=== PATIENT | male | born 1985 | race Caucasian/White ===

== ENCOUNTER 2017-01-26 13:07 | Emergency (ER) | payer OTHER ==
[~2017-01-26] VITALS: Ht 160 cm; Wt 71.5 kg
[~2017-01-26 13:07] MED LIST: ALBU8.5H5 INH; AZIT250T94 PO; CIPR500T4 PO; HYDR-762 PO; METR500T PO; PRED20TA PO
[2017-01-26 13:13] VITALS: Ht 160 cm; Wt 71.5 kg
[2017-01-26] MEDS ORDERED: traMADol 50 MG TAB PO ONE (15:30)
--- NOTE | 2017-01-26 15:34 | ERD ---
ER Documentation Chief Complaint Chief Complaint Abdominal pain HPI 31 year old male comes in with llq pain that is sharp, constant moderate pain that started this morning. Patient states that the pain started this morning when he woke up. He took Tylenol without any relief. Denies fevers or chills, nausea, vomiting or diarrhea. There is no radicular symptoms to his testicles. There is no hematuria or flank pain. She reports a normal bowel movement this morning. ROS All systems reviewed and are negative except as per history of present illness. Medications Home Meds Active Scripts Tramadol HCl (Tramadol HCl) 50 Mg Tablet, 50 MG PO Q4 Y for PAIN, #20 TAB Prov:GEORGINA LOUIS PA-C 01/26/17 Metronidazole* (Flagyl*) 500 Mg Tablet, 500 MG PO TID for 10 Days, TAB Prov:GEORGINA LOUIS PA-C 01/26/17 Ciprofloxacin Hcl* (Ciprofloxacin Hcl*) 500 Mg Tablet, 500 MG PO BID for 10 Days , TAB Prov:GEORGINA LOUIS PA-C 01/26/17 Hydrocodone Bit-Acetaminophen* (Antelope*) 10-325 Mg Tablet, 1 TAB PO Q6 Y for PAIN , #14 TAB Prov:GEORGINA LOUIS PA-C 04/27/15 Metronidazole* (Flagyl*) 500 Mg Tablet, 500 MG PO TID for 7 Days, TAB Prov:GEORGINA LOUIS PA-C 04/27/15 Ciprofloxacin Hcl* (Ciprofloxacin Hcl*) 500 Mg Tablet, 500 MG PO BID for 7 Days , TAB Prov:GEORGINA LOUIS PA-C 04/27/15 Prednisone* (Prednisone*) 20 Mg Tab, 20 MG PO DAILY for 5 Days, TAB Prov:GEORGINA LOUIS PA-C 09/29/14 Albuterol Sulfate* (Albuterol Sulfate* HFA) 8.5 Gm Hfa.aer.ad, 1-2 PUFF INH Q4 Y for SHORTNESS OF BREATH, #1 EA Prov:GEORGINA LOUIS PA-C 09/29/14 Azithromycin* (Zithromax*) 250 Mg Tablet, 250 MG PO .ZPACK DIRECTED, #6 TAB TAKE 500 MG (2 TABS) THE FIRST DAY THEN 250 MG (1 TAB) DAYS 2-5 Prov:GEORGINA LOUIS PA-C 09/29/14 Allergies Allergies: Coded Allergies: No Known Allergy (Unverified , 04/27/15) PMhx/Soc History of Surgery: No Anesthesia Reaction: No Hx Neurological Disorder: No Hx Respiratory Disorders: No Hx Cardiac Disorders: No Hx Psychiatric Problems: No Hx Miscellaneous Medical Probl: No Hx Alcohol Use: Yes Hx Substance Use: No Hx Tobacco Use: Yes Smoking Status: Current some day smoker Physical Exam Vitals Vital Signs Date Time Temp Pulse Resp B/P Pulse Ox O2 Delivery O2 Flow Rate FiO2 01/26/17 13:13 98.5 79 18 140/95 96 Physical Exam General: Well-developed, well-nourished. The patient appears in no acute distress. HEENT: Head is normocephalic, atraumatic. No scleral icterus. Supple, nontender , no meningismus Lungs: Clear to auscultation. Normal air movement. Heart: Regular rate and rhythm. S1 and S2 are normal. No murmurs, gallops, or rubs. Abdomen: Soft, tender to palpation in the left lower quadrant, nondistended. Bowel sounds are normoactive. No tenderness to McBurney's point, negative Lancaster sign, no masses or hepatosplenomegaly. Extremities: No clubbing or cyanosis. Normal pulses. Moving extremities x 4. No weakness. Neurologic: Alert and oriented 3. No focal deficits. Skin: Normal turgor. No rash or lesions. Result Diagram: 01/26/17 1546 01/26/17 1546 Results 24 hrs Laboratory Tests Test 01/26/17 15:46 White Blood Count 9.810^3/ul Red Blood Count 5.1510^6/ul Hemoglobin 15.8g/dl Hematocrit 46.2% Mean Corpuscular Volume 89.7fl Mean Corpuscular Hemoglobin 30.7pg Mean Corpuscular Hemoglobin Concent 34.2g/dl Red Cell Distribution Width 12.6% Platelet Count 17055^3/UL Mean Platelet Volume 11.3fl Neutrophils % 66.8% Lymphocytes % 21.2% Monocytes % 9.4% Eosinophils % 1.6% Basophils % 0.5% Nucleated Red Blood Cells % 0.0/100WBC Neutrophils # 6.510^3/ul Lymphocytes # 2.110^3/ul Monocytes # 0.910^3/ul Eosinophils # 0.210^3/ul Basophils # 0.110^3/ul Nucleated Red Blood Cells # 0.010^3/ul Urine Color JEANIE Urine Clarity CLEAR Urine pH 5.0 Urine Specific [place] 1.043 Urine Ketones NEGATIVEmg/dL Urine Nitrite NEGATIVEmg/dL Urine Bilirubin 1+mg/dL Urine Urobilinogen 1+mg/dL Urine Leukocyte Esterase NEGATIVELeu/ul Urine Microscopic RBC 0/HPF Urine Microscopic WBC 2/HPF Urine Mucus MANY/HPF Urine Hemoglobin NEGATIVEmg/dL Urine Glucose NEGATIVEmg/dL Urine Total Protein 2+mg/dl Sodium Level 145mmol/L Potassium Level 4.2mmol/L Chloride Level 107mmol/L Carbon Dioxide Level 26mmol/L Anion Gap 16 Blood Urea Nitrogen 15mg/dl Creatinine 0.78mg/dl Glucose Level 103mg/dl Calcium Level 9.8mg/dl Total Bilirubin 0.9mg/dl Direct Bilirubin 0.00mg/dl Indirect Bilirubin 0.9mg/dl Aspartate Amino Transf (AST/SGOT) 68IU/L Alanine Aminotransferase (ALT/SGPT) 182IU/L Alkaline Phosphatase 187IU/L Total Protein 8.7g/dl Albumin 4.7g/dl Globulin 4.00g/dl Albumin/Globulin Ratio 1.17 Lipase 70U/L Current Medications Medications (Trade) Dose Ordered Sig/Vince Route PRN Reason Start Time Stop Time Status Last Admin Dose Admin Tramadol HCl (Ultram) 50 mg ONCE ONCE PO 01/26/17 15:30 01/26/17 15:31 DC 01/26/17 15:33 DIAGNOSTIC IMAGING REPORT Patient: ALBINO INTERIANO : 1985 Age: 31 Sex: M MR #: [id number] DOS: 01/26/17 1523 Ordering MD: GEORGINA LOUIS PA-C Location: [facility] Room/Bed: PROCEDURE: CT abdomen and pelvis without contrast. CLINICAL INDICATION: Left lower quadrant abdominal pain TECHNIQUE: CT scan of the abdomen and pelvis without contrast was performed. Sagittal and coronal reformatted images were obtained from the axial source images. One or more of the following dose reduction techniques were used: Automated exposure control, adjustment of the mA and/or kV according to patient size, use of iterative reconstruction technique. CTDI = 8.18 mGy; DLP = 530.49 mGy-cm COMPARISON: CT 04/27/2015 FINDINGS: Visualized lower thorax: The lung bases are clear. There is no evidence for pleural effusion. Liver, gallbladder, pancreas and spleen: Borderline enlarged measuring 18 cm in greatest dimension with diffuse low attenuation consistent hepatic steatosis as seen previously. Liver contour remains normal. There is no evidence for a liver mass or ductal dilatation. The gallbladder is unremarkable. No common bile duct abnormality is demonstrated. The pancreas is unremarkable. The spleen is normal in size. Adrenal glands and genitourinary system: The adrenal glands are normal bilaterally. The kidneys are normal and size, contour and attenuation with no evidence for masses, calculi or hydronephrosis. The ureters are unremarkable. No urinary bladder abnormality is demonstrated. The prostate gland is normal in size. The scrotum shows no evidence of abnormality. Gastrointestinal system: Posterior to the gastric fundus is enlarging, ovoid, hypodense lesion estimated at 3.5 x 1.6 cm, previously 2.4 x 1.5 cm (series 2 image 41). This lesion is indeterminate possibly a duplication cyst. The stomach is normal in caliber without intrinsic wall thickening. The small bowel is normal in caliber with no ileus, obstruction or wall thickening. The appendix and surrounding fat are within the limits of normal. Again demonstrated is thickening of the wall involving the descending colon proximally with pericolonic inflammation adjacent to the multiple diverticula, findings consistent with recurrent acute descending colon diverticulitis. The length of involvement is approximately 9.3 cm. The location of the diverticulitis is more proximal than on the previous study. The sigmoid colon and rectum are unremarkable. Peritoneum, retroperitoneum, lymph nodes and vessels: The abdominal aorta is normal in caliber. There is no evidence for atherosclerotic calcification. The inferior vena cava is unremarkable. There is no evidence for adenopathy or mass. There is no ascites. No pneumoperitoneum or abscess is present. Osseous structures and musculoskeletal findings: There is no fracture, lytic or blastic lesion. No muscular abnormality or soft tissue pathology is present. RPTAT:HJJR IMPRESSION: 1. Acute recurrent descending colonic diverticulitis, the inflammation more proximal in location in the descending colon than the study of 04/27/2015. 2. No evidence of pneumoperitoneum or abscess. 3. Ovoid hypodense lesion posterior to the gastric fundus is slightly larger than on the previous examination but of uncertain significance, the attenuation suggest the possibility of atypical duplication cyst. Adenopathy is a less likely possibility but follow-up evaluation is recommended. 4. Stable hepatic steatosis. Physician Marley Date Time Electronically viewed and signed by Wojciech Crews Physician on 01/26/2017 18:11 JR/ Procedures/MDM ED course: Patient was given tramadol for pain. Medical decision makin-year-old male presents with left lower quadrant abdominal pain, differential diagnosis includes musculoskeletal strain, kidney stone, diverticulitis, constipation, acute appendicitis, pancreatitis, dissection. Pelvis was positive for acute diverticulitis. This appears to be recurrent and he has had this about a year ago. I have advised the patient that he will need to start antibiotics, stay on a clear liquid diet and slowly advance to regular food and needs to follow-up with his PCP in the next couple of days to get a referral to see gastroenterology for an outpatient colonoscopy. No evidence of perforation, intra-abdominal abscess, acute appendicitis. Patient's pain is well controlled emergency department visit for outpatient management. Departure Diagnosis: Primary Impression: Diverticulitis Condition: Good GEORGINA LOUIS PA-C Jan 26, 2017 15:34
[2017-01-26 16:10] LABS: BASOPHIL # 0.1 10^3/ul (0.0-0.1); BASOPHILS % 0.5 % (0.0-2.0); EOSINOPHILS # 0.2 10^3/ul (0.0-0.5); EOSINOPHILS % 1.6 % (0.0-7.0); HEMATOCRIT 46.2 % (42.0-52.0); HEMOGLOBIN 15.8 g/dl (14.0-18.0); LYMPHOCYTES # 2.1 10^3/ul (0.8-2.9); LYMPHOCYTES % 21.2 % (15.0-51.0); MEAN CORPUSCULAR HEMOGLOBIN 30.7 pg (29.0-33.0); MEAN CORPUSCULAR HGB CONC 34.2 g/dl (32.0-37.0); MEAN CORPUSCULAR VOLUME 89.7 fl (82.0-101.0); MEAN PLATELET VOLUME 11.3 fl (7.4-10.4); MONOCYTE # 0.9 10^3/ul (0.3-0.9); MONOCYTES % 9.4 % (0.0-11.0); NEUTROPHIL # 6.5 10^3/ul (1.6-7.5); NEUTROPHILS % 66.8 % (39.0-77.0); PLATELET COUNT 292 10^3/UL (140-415); RED BLOOD COUNT 5.15 10^6/ul (4.70-6.10); RED CELL DISTRIBUTION WIDTH 12.6 % (11.5-14.5); WHITE BLOOD COUNT 9.8 10^3/ul (4.8-10.8)
[2017-01-26 16:12] LABS: ADD UMIC YES; UR ASCORBIC ACID NEGATIVE (NEGATIVE); UR BILIRUBIN (Dip) 1+ mg/dL (NEGATIVE); UR BLOOD (Dip) NEGATIVE (NEGATIVE); UR CLARITY CLEAR (CLEAR); UR COLOR AMBER (YELLOW); UR GLUCOSE (Dip) NEGATIVE (NEGATIVE); UR KETONES (Dip) NEGATIVE (NEGATIVE); UR LEUKOCYTE ESTERASE (Dip) NEGATIVE Leu/ul (NEGATIVE); UR MUCUS MANY /HPF (NONE SEEN); UR NITRITE (Dip) NEGATIVE (NEGATIVE); UR RBC 0 /HPF (0-5); UR SPECIFIC GRAVITY (Dip) 1.043 (1.003-1.030); UR TOTAL PROTEIN (Dip) 2+ mg/dl (NEGATIVE); UR UROBILINOGEN (Dip) 1+ mg/dL (NEGATIVE)
[2017-01-26 16:39] LABS: ALBUMIN 4.7 g/dl (3.3-4.9); ALBUMIN/GLOBULIN RATIO 1.17; BILIRUBIN,INDIRECT 0.9 mg/dl (0-1.1); BILIRUBIN,TOTAL 0.9 mg/dl (0.2-1.3); CALCIUM 9.8 mg/dl (8.4-10.2); CREATININE 0.78 mg/dl (0.61-1.24); POTASSIUM 4.2 mmol/L (3.5-5.1); TOTAL PROTEIN 8.7 g/dl (6.1-8.1)
--- NOTE | 2017-01-26 18:11 | RADRPT ---
PROCEDURE: CT abdomen and pelvis without contrast. CLINICAL INDICATION: Left lower quadrant abdominal pain TECHNIQUE: CT scan of the abdomen and pelvis without contrast was performed. Sagittal and coronal reformatted images were obtained from the axial source images. One or more of the following dose re duction techniques were used: Automated exposure control, adjustment of the mA and/or kV according t o patient size, use of iterative reconstruction technique. CTDI = 8.18 mGy; DLP = 530.49 mGy-cm COMPARISON: CT 04/27/2015 FINDINGS: Visualized lower thorax: The lung bases are clear. There is no evidence for pleural effusion. Liver, gallbladder, pancreas and spleen: Borderline enlarged measuring 18 cm in greatest dimension with diffuse low attenuation consistent hepatic steatosis as seen previously. Liver contour remains normal. There is no evidence for a liver mass or ductal dilatation. The gallbladder is unremarkabl e. No common bile duct abnormality is demonstrated. The pancreas is unremarkable. The spleen is n ormal in size. Adrenal glands and genitourinary system: The adrenal glands are normal bilaterally. The kidneys are normal and size, contour and attenuation with no evidence for masses, calculi or hydronephrosis. T he ureters are unremarkable. No urinary bladder abnormality is demonstrated. The prostate gland is normal in size. The scrotum shows no evidence of abnormality. Gastrointestinal system: Posterior to the gastric fundus is enlarging, ovoid, hypodense lesion zia mated at 3.5 x 1.6 cm, previously 2.4 x 1.5 cm (series 2 image 41). This lesion is indeterminate pos sibly a duplication cyst. The stomach is normal in caliber without intrinsic wall thickening. The s mall bowel is normal in caliber with no ileus, obstruction or wall thickening. The appendix and meagan rounding fat are within the limits of normal. Again demonstrated is thickening of the wall involvin g the descending colon proximally with pericolonic inflammation adjacent to the multiple diverticula , findings consistent with recurrent acute descending colon diverticulitis. The length of involvemen t is approximately 9.3 cm. The location of the diverticulitis is more proximal than on the previous study. The sigmoid colon and rectum are unremarkable. Peritoneum, retroperitoneum, lymph nodes and vessels: The abdominal aorta is normal in caliber. The re is no evidence for atherosclerotic calcification. The inferior vena cava is unremarkable. There is no evidence for adenopathy or mass. There is no ascites. No pneumoperitoneum or abscess is pres ent. Osseous structures and musculoskeletal findings: There is no fracture, lytic or blastic lesion. No muscular abnormality or soft tissue pathology is present. RPTAT:HJJR IMPRESSION: 1. Acute recurrent descending colonic diverticulitis, the inflammation more proximal in location in the descending colon than the study of 04/27/2015. 2. No evidence of pneumoperitoneum or abscess. 3. Ovoid hypodense lesion posterior to the gastric fundus is slightly larger than on the previous e xamination but of uncertain significance, the attenuation suggest the possibility of atypical duplic ation cyst. Adenopathy is a less likely possibility but follow-up evaluation is recommended. 4. Stable hepatic steatosis. Physician Marley Date Time Electronically viewed and signed by Physician Marley on 01/26/2017 18:11 JR/
[2017-01-26] MEDS ORDERED: METR500T PO (18:14)
[2017-01-26] MEDS ORDERED: TRAM50TA2 PO (18:14)
[2017-01-26] MEDS ORDERED: CIPR500T4 PO (18:14)
[2017-01-26 18:35] VITALS: BP 154/89; PULSE 72; RESP 18
== END 2017-01-26 18:37 | disposition home or self-care (01) ==
LOC: FTE 13:07
DX: K57.30 Diverticulosis of large intestine without perforation or abscess without bleeding (principal); F17.210 Nicotine dependence, cigarettes, uncomplicated
CPT/HCPCS: 36415; 74176; 80053; 81001; 83690; 85025